=== PATIENT | female | born 1975 | race Hispanic/Latino ===

== ENCOUNTER 2022-04-16 08:55 | Day surgery (SDC) | payer SELFPAY ==
[~2022-04-16] VITALS: Ht 160 cm; Wt 77.1 kg
[~2022-04-16 08:55] MED LIST: DEPO; FLUCONAZOLE100 MG PO
[2022-04-16] MEDS ORDERED: PERCOCET 5/321 COMBO PO (10:53)
[2022-04-16 13:07] VITALS: BP 147/82
== END 2022-04-16 13:00 | disposition home or self-care (01) | DRG 349 ==
LOC: ORM 08:55
PROVIDERS: ATTEND Surgery
PROC: 06BY3ZC Excision of Hemorrhoidal Plexus, Percutaneous Approach (ICD-10-PCS; principal; 2022-04-16)
DX: K64.2 Third degree hemorrhoids (principal); K64.5 Perianal venous thrombosis
CPT/HCPCS: C9290; J0131